=== PATIENT | female | born 1995 | race African-American/Black ===

== ENCOUNTER 2021-08-19 09:50 | Outpatient (REF) | payer OTHER, SELFPAY ==
[2021-08-19 10:29] LABS: MANUAL DIFF FLAG NO
[2021-08-19 10:32] LABS: Basophils Percent Auto 0.4 % (0-2); Eosinophils Absolute Auto 0.2 X10*3/uL (0.0-0.4); Eosinophils Percent Auto 3.6 % (0-4); Hematocrit 34.6 % (37.0-47.0); Lymphocytes Absolute Auto 1.8 X10*3/uL (1.2-4.9); Lymphocytes Percent Auto 40.9 % (20-40); Mean Corpuscular HGB Conc 31.8 g/dl (31.0-35.0); Mean Corpuscular Hemoglobin 25.6 pg (27.0-33.0); Mean Corpuscular Volume 80.7 fL (80.0-98.0); Mean Platelet Volume 10.2 fL (9.4-12.3); Monocytes Absolute Auto 0.4 X10*3/uL (0.1-1.2); Monocytes Percent Auto 8.7 % (2-11); Neutrophils Absolute Auto 2.1 x10*3/uL (2.0-8.3); Neutrophils Percent Auto 46.4 % (45-73); Platelet Count 318 X10*3/uL (160-400); Red Blood Count 4.29 X10*6/uL (4.20-5.50); Red Cell Distribution Width 12.3 % (11.0-16.0); White Blood Count 4.5 X10*3/uL (4.8-10.8)
[2021-08-19 10:57] LABS: Alanine Aminotransferase 7 U/L (0-31); Alkaline Phosphatase 89 U/L (39-117); Anion Gap 11 (12-20); Aspartate Amino Transferase 20 U/L (5-31); Bilirubin Total 0.4 mg/dL (0.0-1.0); Blood Urea Nitrogen 8 mg/dL (9-16); Calcium 8.8 mg/dL (8.4-10.2); Carbon Dioxide 25 mmol/L (22-29); Chloride 107 mmol/L (96-108); Cholesterol 157 mg/dL; Estimated Glomerular Filt Rate > 60; Glucose Fasting 82 mg/dL (60-99); HDL Cholesterol 36 mg/dL; LDL Cholesterol Calculated 104 mg/dl; Potassium 4.1 mmol/L (3.3-5.1); Sodium 139 mmol/L (135-145); Total Protein 7.7 g/dL (6.5-8.0); Triglycerides 85 mg/dL
[2021-08-19 11:20] LABS: Thyroid Stimulating Hormone 0.47 uIU/mL (0.32-4.0)
== END 2021-08-19 09:51 | disposition home or self-care (01) ==
LOC: HO.10HDL 09:50
PROVIDERS: Visit Provider Internal Medicine
DX: Z00.00 Encounter for general adult medical examination without abnormal findings (principal); Z13.31 Encounter for screening for depression; R53.83 Other fatigue; R63.5 Abnormal weight gain
CPT/HCPCS: 36415; 80053; 80061; 84443; 85025

== ENCOUNTER 2022-06-30 09:51 | Outpatient (REF) | payer OTHER, SELFPAY ==
[2022-06-30 10:29] LABS: MANUAL DIFF FLAG NO
[2022-06-30 10:37] LABS: Basophils Percent Auto 0.3 % (0-2); Eosinophils Absolute Auto 0.2 X10*3/uL (0.0-0.4); Eosinophils Percent Auto 5.1 % (0-4); Hematocrit 34.7 % (37.0-47.0); Hemoglobin 10.7 g/dl (12.0-16.0); Imm Gran Abs Auto 0.02 X10*3/uL (0.00-0.03); Imm Gran Pct Auto 0.5 % (0.0-0.4); Lymphocytes Absolute Auto 1.4 X10*3/uL (1.2-4.9); Mean Corpuscular HGB Conc 30.8 g/dl (31.0-35.0); Mean Corpuscular Hemoglobin 24.5 pg (27.0-33.0); Mean Corpuscular Volume 79.6 fL (80.0-98.0); Mean Platelet Volume 9.5 fL (9.4-12.3); Monocytes Absolute Auto 0.6 X10*3/uL (0.1-1.2); Monocytes Percent Auto 15.2 % (2-11); Neutrophils Absolute Auto 1.7 x10*3/uL (2.0-8.3); Neutrophils Percent Auto 43.9 % (45-73); Platelet Count 332 X10*3/uL (160-400); Red Blood Count 4.36 X10*6/uL (4.20-5.50); Red Cell Distribution Width 13.3 % (11.0-16.0); White Blood Count 3.9 X10*3/uL (4.8-10.8)
[2022-06-30 12:13] LABS: Alanine Aminotransferase 16 U/L (0-31); Albumin Level 4.2 g/dL (3.5-5.0); Alkaline Phosphatase 68 U/L (39-117); Anion Gap 13 (12-20); Aspartate Amino Transferase 20 U/L (5-31); Bilirubin Total 0.2 mg/dL (0.0-1.0); Blood Urea Nitrogen 6 mg/dL (9-16); Calcium 8.7 mg/dL (8.4-10.2); Carbon Dioxide 26 mmol/L (22-29); Chloride 104 mmol/L (96-108); Cholesterol 149 mg/dL; Estimated Glomerular Filt Rate > 60; Glucose Random 101 mg/dL (60-115); HDL Cholesterol 36 mg/dL; LDL Cholesterol Calculated 94 mg/dl; Potassium 3.7 mmol/L (3.3-5.1); Sodium 139 mmol/L (135-145); Thyroid Stimulating Hormone 0.18 uIU/mL (0.32-4.0); Total Protein 7.5 g/dL (6.5-8.0); Triglycerides 99 mg/dL
== END 2022-06-30 09:52 | disposition home or self-care (01) ==
LOC: HO.10HDL 09:51
PROVIDERS: Visit Provider Internal Medicine
DX: M70.61 Trochanteric bursitis, right hip (principal); M70.62 Trochanteric bursitis, left hip; R63.5 Abnormal weight gain; Z68.33 Body mass index [BMI] 33.0-33.9, adult
CPT/HCPCS: 36415; 80053; 80061; 84443; 85025

== ENCOUNTER 2022-10-06 11:27 | Outpatient (REF) | payer OTHER, SELFPAY ==
[2022-10-06 13:30] LABS: MANUAL DIFF FLAG NO
[2022-10-06 13:37] LABS: Basophils Percent Auto 0.5 % (0-2); Eosinophils Absolute Auto 0.3 X10*3/uL (0.0-0.4); Hematocrit 34.7 % (37.0-47.0); Hemoglobin 10.6 g/dl (12.0-16.0); Imm Gran Abs Auto 0.01 X10*3/uL (0.00-0.03); Imm Gran Pct Auto 0.2 % (0.0-0.4); Lymphocytes Absolute Auto 1.9 X10*3/uL (1.2-4.9); Lymphocytes Percent Auto 46.6 % (20-40); Mean Corpuscular HGB Conc 30.5 g/dl (31.0-35.0); Mean Corpuscular Hemoglobin 23.9 pg (27.0-33.0); Mean Corpuscular Volume 78.2 fL (80.0-98.0); Mean Platelet Volume 10.5 fL (9.4-12.3); Monocytes Absolute Auto 0.3 X10*3/uL (0.1-1.2); Neutrophils Absolute Auto 1.7 x10*3/uL (2.0-8.3); Neutrophils Percent Auto 39.7 % (45-73); Platelet Count 389 X10*3/uL (160-400); Red Blood Count 4.44 X10*6/uL (4.20-5.50); Red Cell Distribution Width 13.5 % (11.0-16.0); White Blood Count 4.2 X10*3/uL (4.8-10.8)
[2022-10-06 14:06] LABS: Ferritin 13 ng/mL (10-122); TSH reflex Free T4 0.43 uIU/mL (0.32-4.0)
[2022-10-08 07:23] LABS: Triiodothyronine T3 Free 3.5 pg/mL (2.3-4.2)
== END 2022-10-06 11:28 | disposition home or self-care (01) ==
LOC: HO.10HDL 11:27
PROVIDERS: Visit Provider Internal Medicine
DX: Z00.01 Encounter for general adult medical examination with abnormal findings (principal); D50.8 Other iron deficiency anemias; E05.90 Thyrotoxicosis, unspecified without thyrotoxic crisis or storm; G43.109 Migraine with aura, not intractable, without status migrainosus
CPT/HCPCS: 36415; 82728; 84443; 84481; 85025

== ENCOUNTER 2023-02-16 08:33 | Outpatient (REF) | payer OTHER, SELFPAY ==
[2023-02-16 09:53] LABS: MANUAL DIFF FLAG NO
[2023-02-16 10:05] LABS: Basophils Percent Auto 0.4 % (0-2); Eosinophils Absolute Auto 0.2 X10*3/uL (0.0-0.4); Eosinophils Percent Auto 3.6 % (0-4); Hematocrit 34.5 % (37.0-47.0); Hemoglobin 10.4 g/dl (12.0-16.0); Imm Gran Abs Auto 0.01 X10*3/uL (0.00-0.03); Imm Gran Pct Auto 0.2 % (0.0-0.4); Lymphocytes Absolute Auto 2.8 X10*3/uL (1.2-4.9); Lymphocytes Percent Auto 53.4 % (20-40); Mean Corpuscular HGB Conc 30.1 g/dl (31.0-35.0); Mean Corpuscular Hemoglobin 24.1 pg (27.0-33.0); Mean Platelet Volume 9.8 fL (9.4-12.3); Monocytes Absolute Auto 0.5 X10*3/uL (0.1-1.2); Monocytes Percent Auto 9.1 % (2-11); Neutrophils Absolute Auto 1.8 x10*3/uL (2.0-8.3); Neutrophils Percent Auto 33.3 % (45-73); Platelet Count 398 X10*3/uL (160-400); Red Blood Count 4.31 X10*6/uL (4.20-5.50); Red Cell Distribution Width 13.6 % (11.0-16.0); White Blood Count 5.3 X10*3/uL (4.8-10.8)
[2023-02-16 10:38] LABS: TSH reflex Free T4 0.45 uIU/mL (0.32-4.0)
[2023-02-17 06:58] LABS: Triiodothyronine T3 Free 3.3 pg/mL (2.3-4.2)
== END 2023-02-16 08:34 | disposition home or self-care (01) ==
LOC: HO.10HDL 08:33
PROVIDERS: Visit Provider Internal Medicine
DX: D50.8 Other iron deficiency anemias (principal); E05.90 Thyrotoxicosis, unspecified without thyrotoxic crisis or storm; Z68.33 Body mass index [BMI] 33.0-33.9, adult
CPT/HCPCS: 36415; 84443; 84481; 85025

== ENCOUNTER 2023-11-30 08:20 | Outpatient (REF) | payer OTHER, SELFPAY ==
[2023-11-30 10:36] LABS: MANUAL DIFF FLAG NO
[2023-11-30 10:49] LABS: Basophils Percent Auto 0.7 % (0-2); Eosinophils Absolute Auto 0.4 X10*3/uL (0.0-0.4); Eosinophils Percent Auto 8.5 % (0-4); Hematocrit 34.8 % (37.0-47.0); Hemoglobin 10.7 g/dl (12.0-16.0); Lymphocytes Absolute Auto 1.6 X10*3/uL (1.2-4.9); Lymphocytes Percent Auto 37.9 % (20-40); Mean Corpuscular HGB Conc 30.7 g/dl (31.0-35.0); Mean Corpuscular Hemoglobin 23.9 pg (27.0-33.0); Mean Corpuscular Volume 77.7 fL (80.0-98.0); Mean Platelet Volume 9.6 fL (9.4-12.3); Monocytes Absolute Auto 0.6 X10*3/uL (0.1-1.2); Monocytes Percent Auto 12.9 % (2-11); Neutrophils Absolute Auto 1.7 x10*3/uL (2.0-8.3); Platelet Count 373 X10*3/uL (160-400); Red Blood Count 4.48 X10*6/uL (4.20-5.50); Red Cell Distribution Width 13.9 % (11.0-16.0); White Blood Count 4.3 X10*3/uL (4.8-10.8)
[2023-11-30 11:31] LABS: Ferritin 20 ng/mL (10-122); Thyroid Stimulating Hormone 0.75 uIU/mL (0.32-4.0)
[2023-11-30 11:32] LABS: Vitamin B12 506 pg/mL (200-900)
[2023-11-30 12:19] LABS: CT PCR NOT DETECTED (Not Detect.); NG PCR NOT DETECTED (Not Detect.)
[2023-12-02 13:03] LABS: Hematocrit 33.8 % (35.0-45.0); Hemoglobin 10.5 g/dL (11.7-15.5); MCH 23.7 pg (27.0-33.0); MCV 76.3 fL (80.0-100.0); RBC 4.43 Million/uL (3.80-5.10)
== END 2023-11-30 08:21 | disposition home or self-care (01) ==
LOC: HO.10HDL 08:20
PROVIDERS: Visit Provider Internal Medicine
DX: Z00.01 Encounter for general adult medical examination with abnormal findings (principal); D50.8 Other iron deficiency anemias; I10 Essential (primary) hypertension; R63.5 Abnormal weight gain
CPT/HCPCS: 0353U; 82607; 82728; 83020; 84443; 85014; 85018; 85025; 85041

== ENCOUNTER → 2024-02-13 08:40 | Outpatient (BNV) | payer OTHER, SELFPAY | PROVIDERS: PCP Internal Medicine; Referring Provider Internal Medicine; Visit Provider Internal Medicine Medical Oncology | DX: D50.9 Iron deficiency anemia, unspecified (principal) | CPT/HCPCS: 99204 ==

== ENCOUNTER 2024-07-11 09:31 | Outpatient (REF) | payer OTHER, SELFPAY ==
--- OUTSIDE RECORDS SUMMARY | 2024-07-11 10:56 | XMS_ITS | Continuity of Care Document ---
Author Organization [facility] vices Address [address] [place] [address] Phone Care Team Providers Care Seasonal Greenery Bundler Name Role Phone Generic Provider, [facility] Unavailable Unavailabl e Allergies, Adverse Reactions, Alerts [...] 2 Dose IMMUNIZATION ADMIN, EACH ADD HPV [id number],nonaval HP V 3 Dose OFFICE/OUTPATIENT VISIT, EST PURE TONE HEARING TEST, AIR VISUAL ACUITY SCREEN IMMUNIZATION ADMIN FLU VACCINE, IIV3, Split, Preserv Free, 0.5mL, IM IMMUNIZATION ADMIN, EACH ADD HPV [id number],nonaval HP V 3 Dose PREV VISIT, EST, AGE 18-39 Resin-Based Composite-Two Surfaces, Post erior Treatment Plan [facility] IMMUN[facility]ATION ADMIN MENINGOCOCCAL VACCINE IM IMMUNIZATION ADMIN, EACH ADD H PAPILLOMA VACC 3 DOSE IM OFFICE/OUTPATIENT VISIT, EST IMMUNIZATION ADMIN HEP A VACCINE, ADULT IM IMMUNIZATION ADMIN, EACH ADD FLU VACCINE NO PRESERV 3 & > OFFICE/OUTPATIENT VISIT, EST OFFICE/OUTPATIENT VISIT, NEW Resin-Based Composite-Two Surfaces, Post erior Resin-Based Composite-Two Surfaces, Post erior Treatment Plan In Process [facility] Comprehensive Oral Evaluation-New Or Est ablished [...] Diagnoses Date Provider Providers Copied on Encounter [facility], [address], [place], [facility], [place] tel:[phone] [facility] Adult Medicine No Information 8 Generic Provider [facility]. [facility], [address] [place], [facility], [place] tel:[phone] [facility] Adolescent Health No Information 8 Mikayla Juliet. [address], [id number] [address] [place] [address], [address], [place]. tel:[phone] PREV VISIT, [facility], AGE 18-39 [facility], [address] [place], [facility], [place] tel:[phone] [facility] Adolescent Health Physical Exam (chief complaint) Encntr [...] adult 8 Mikaylaallegra Chung. [address], [id number] [address] [place] [address], [address], [place]. [phone] OFFICE/OUTPA TIENT VISIT, [facility], [address] [place], [place], [facility], [place] tel:[phone] [facility] Adolescent Health Immunizations (chief complaint) [facility] for [facility] 7 [facility] [address], [id number] [address] [place] [address], [address], [place]. tel:[phone] OFFICE/OUTPA TIENT VISIT, [facility], [address] [place], [address], [place] tel:[phone] [facility] Adolescent Health Follow Up (chief complaint) Dysmenorrhea , unspecifiedM enstrual migraine without status migrainosus, not intractable [address] [facility]. [address], [id number] [address] [place] [address], [address], [place]. tel: [phone] OFFICE/OUTPA TIENT VISIT, [facility], [address] [place], [address], [place] tel:[phone] [facility] Adolescent Health Immunizations (chief complaint) Encounter for immunization [address] [facility]. [address], [id number] [address] [place] [address], [address], [place]. tel: [phone] OFFICE/OUTPA TIENT VISIT, [facility], [address] [place], [address], [place] tel:[phone] [facility] Adolescent Health Follow Up (chief complaint) Vitamin D deficiency, unspecified Oct-2 7 Vishal Vitale. [address], [id number] [address] [place] [address], [address], [place]. tel: [phone] PREV VISIT, [facility], AGE 18-39 [facility], [address] [place] [address], [address], [place] tel:[phone] [facility] Adolescent Health Follow Up (chief complaint) Encntr for general adult medical exam w/o abnormal findingsBody mass index (BMI) 23.0-23.9, adultEncount er for exam of ears and hearing w/o abnormal findingsEnco unter for exam of eyes and vision w/o abnormal findingsMild depressionSc reening for depressionIn somnia, unspecified typeImmuniza tion dueVitamin D deficiency, unspecified Apr-0 7 Vishal Vitale. [address], [id number] [place], [address], [place]. tel: [phone] [facility], [address] [place], [address], [place] tel:[phone] [facility] Dental Encounter for dental exam and cleaning w/o abnormal findings 6 Devora Davis. [address], [id number] [address] [place] [address], [id number], [place]. tel:[phone] OFFICE/OUTPA TIENT VISIT, [facility], [address] [place], [address], [place] tel:[phone] [facility] Adolescent Health f/u (chief complaint) Immunization due 5 Vishal Vitale. [address], [id number] [address] [place] [address], [address], [place]. tel:[phone] OFFICE/OUTPA TIENT VISIT, [facility], [address], [place], [address], [place] tel:[phone] [facility] Adolescent Health Sick visit (chief complaint) Lower abdominal pain, unspecifiedI mmunization dueVitamin D deficiency, unspecified 5 Vishal Vitale. [address], [id number] [address] [place] [address], [address], [place]. tel:[phone] OFFICE/OUTPA TIENT VISIT, [facility], [address], [place], [address], [place] tel:[phone] [facility] Adolescent Health cramps (chief complaint)New patient (chief complaint) Dysmenorrhea Leg pain 5 Vishal Vitale. [address], [id number] [address] [place] [address], [address], [place]. tel:[phone] [facility], [address] [place], [address], [place] tel:[phone] [facility] Dental Dental examination 5 Devora Davis. [address], [id number] [place], [id number], [place]. tel:[phone] Referring Provider: Susan Lozoya, [address] [id number] [facility], [place], [address] . tel:[phone] [facility], [place], [address], [place] tel:[phone] [facility] Dental Dental examination 5 No Information [facility], [place], [address], [place] tel:[phone] [facility] Dental Dental examination 5 Devora Davis. [address], [id number] [address] [place] [address], [id number], [place]. tel:[phone] [facility], [address] [place] [address], [address], [place] tel:[phone] [facility] Dental Dental examination 5 Rodir Tan. [address], [id number] [address] [place] [address], [id number], [place]. tel:[phone] [facility], [address] [place] [address], [address], [place] tel:[phone] [facility] Dental Dental examination 4 Devora Kirk. [address], [id number] [address] [place] [address], [id number], [place]. tel:[phone] [facility], [address] [place] [address], [address], [place] tel:[phone] Historic Immunization Location No Information 1 No Information [facility], [address] [place] [address], [address], [place] tel:[phone] Conversion ROUTINE INFANT OR CHILD HEALTH CHECKHEADACH E, UNSPECIFIED 0 9 No Information PREV EST 12-17 [facility], [address] [place] [address], [address], [place] tel:[phone] [facility] Pediatrics No Information 9 No Information [facility], [address] [place] [address], [address], [place] tel:[phone] Conversion UNSPECIFIED VIRAL INFECTION 9 No Information EST [facility], [address] [place], [address], tel:[phone] [facility] Pediatrics No Information 9 No Information [facility], [address] [place], [address], [place] tel:[phone] Conversion ACUTE GASTRITIS (WITHOUT HEMORRHAGE) 8 No Information EST [facility], [address] [place], [address], [place] tel:[phone] [facility] Pediatrics No Information 8 No Information Family [...] preservative free, 3 years and older Afluria ???[id number] administered Source: New Immuniza tion Record HEP [...] Covered green party ID James zuleta(s) Vivek [id number] CHN Husky D [id number] CHN Husky D [id number] CHN Husky A [id number] CHN Husky A [id number] CHN Husky A [id number] Social History Type Description Quantity Date Captured [...] and counseling completed Referral Ordered: Referrals: Location: [facility] Optometry Appointment date/timeframe: 04/19/2018 ordered Patient Education [...] live with someone who has been in custodial, has lived in a fdc, injects IV drugs or has HIV? noHas [...] No dysuria. No vaginal D/C. Came from [facility] in 2004. No hospitalizations. No chronic meds. NKDA.Has graduated from [employer] (medical school on line). 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 Denies smoking and drug abuse. Sleeps 8 [...] hospitalizations. No chronic meds. NKDA.Has graduated from [employer] (medical school on line). 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 Denies smoking and drug abuse. Reports good mood, no SI.Sleeps 9 hours/night. Eats breakfast daily. f/u Here for F/U.Rep orts that abdominal pain and vomiting have resolved. Regular BMs. No dysuria. No vaginal D/C. Regular periods with dysmenorrhea SXs. LMP-04/29/15. No sex yet. Has started the vitamin D treatment.Came from [facility] in 2004. No hospitalizations. No chronic meds. NKDA.Attends [employer] ([employer] school on line). 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 Denies smoking and drug abuse. Reports good mood, no SI.Sleeps 9 hours/night. Eats breakfast daily. Sick visit Occasional abdom inal pain and vomiting for 3 days. Last BM 3 days ago. Feels better today, last vomiting yesterday. No dysuria. No vaginal D/C. Regular periods with dysmenorrhea SXs. LMP-04/29/15. No sex yet. Has not taken the vitamin D treatment yet.Came from [facility] in 2004. No hospitalizations. No chronic meds. NKDA.Attends [employer] school on line). 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 Denies smoking and drug abuse. Reports good mood, no SI.Sleeps 9 hours/night. Eats breakfast daily. cramps New patient New patient. Cam e from [facility] in 2004. No hospitalizations. No chronic [...] without status migrainosus, not intractable -referred to [facility] Optometry Relat ed to Myopia of both [...] sooner prn Related to Encounter for immunization Prescribed activity/ exercise education Related to Body mass index (BMI) 23.0-23.9, adult Dietary management e ducation, guidance, and counseling Related to Body mass index (BMI) 23.0-23.9, adult Dietary management e ducation, guidance, and counseling Related to Body mass index (BMI) 23.0-23.9, adult Exercise promotion: strength tra ining Related to Body mass index (BMI) 23.0-23.9, adult Assessments Type Assessment Date No Information Patient Care Teams Name Effective Dates (start - stop) Status Members No Information
== END 2024-07-11 09:32 | disposition home or self-care (01) ==
LOC: HO.LAB 09:31
PROVIDERS: PCP Internal Medicine; Visit Provider Advanced Practice Midwife
DX: Z01.411 Encounter for gynecological examination (general) (routine) with abnormal findings (principal); N92.0 Excessive and frequent menstruation with regular cycle
CPT/HCPCS: 99212; 99385; 99459

== ENCOUNTER 2024-07-11 09:31 | Outpatient (AMB) | payer OTHER, SELFPAY ==
[2024-07-11 09:50] VITALS: BP 92/60; BMI 36.1
--- NOTE | 2024-07-11 09:50 | A.OFFVIS_ITS ---
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 She reports increased vaginal discharge with odor. Regular monthly menses regular times 4-5 days heavy for 2 to 3 days. Currently is sexually active. She denies vaginal itching and irritation. STI screening offered; she accepts. She tries to eat healthy, admits she is lactose intolerant and stays active with exercise. History of anemia, has not filled her iron prescription. Denies family history of breast, ovarian or colon cancer. Last pap smear no record and, patient reports was negative. Previous lab TSH done 11/30/2023 was 0.75, H/H on 02/13/2024 was 10.7/34.3. 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 Menorrhagia Migraine with aura Social History (Updated 07/11/24 @ 10:02 by Mariaelena Reyes [facility]) Household Members: Family Alcohol intake: never Patient Tobacco Use Status: Never used Tobacco service: No Current occupational status: employed Female Reproductive History Menstrual Age of Menarche: 12 Duration of menses: 3-5 days Date of last menstrual period: 06/14/24 control method: none Total pregnancies: 0 Review of Systems Const All systems reviewed & are unremarkable except as noted in HPI and below Reports as per HPI Eyes Reports no additional complaints ENT Reports no additional complaints Card Reports no additional complaints Resp Reports no additional complaints GI Reports as per HPI and Reports no additional complaints Reports as per HPI Musc Reports no additional complaints Skin/Breast Reports as per HPI Neuro Reports no additional complaints Psych Reports no additional complaints Endo Reports no additional complaints Bradly/Lymph Reports no additional complaints Aller/Immun Reports no additional complaints Physical Exam Vital Signs: Last Vital Signs BP 92/60 07/11/24 09:50 BMI result Body Mass Index 36.1 Const General: cooperative, healthy appearing, no acute distress, well developed and alert Orientation/consciousness: patient oriented x3 HEENT Head: Yes normal to inspection Eyes General: appearance normal, both eyes and all related structures Neck Neck: Yes normal visual inspection Thyroid: Thyroid normal Chest Chest palpation & inspection: normal inspection of the chest and other (no puckering, dimpling, peau de orange, retraction, discharge, masses) Breast/axilla inspection: normal inspection of the breasts Breast/axilla palpation: normal palpation of the breasts Resp Effort & Inspection: normal respiratory effort GI Inspection: Yes normal to inspection Palpation (GI): Soft to palpation Rectal Exam - Female: deferred Other: FGM noted General: Yes bladder normal to palpation External Female Exam: normal external appearance and normal appearance of the urethra Speculum Exam - Vagina: normal appearance of the vagina, normal palpation and normal vaginal discharge Speculum Exam - Cervix: normal appearance of the cervix and normal palpation Bimanual exam- vagina & uterus: normal bimanual exam, normal palpation, uterine size normal, bladder normal to palpation, normal palpation and non-tender Bimanual Exam- Adnexa, other: no masses Skin General skin exam: no rashes or lesions noted Rashes: no rashes Neuro General: patient oriented x3 Cognition (Neuro): normal cognition Extrem General: Yes normal to inspection Psych Attitude: cooperative Thought process: Normal thought process present Assessment & Plan Assessment & Plan (1) Encounter for well woman exam with routine gynecological exam: Code(s): Z01.419 - Encounter for gynecological examination (general) (routine) without abnormal findings Category: Medical (2) Menorrhagia: Code(s): N92.0 - Excessive and frequent menstruation with regular cycle Category: Medical Qualifiers: Menorrhagia type: with regular cycle Qualified Code(s): N92.0 - Excessive and frequent menstruation with regular cycle Plan Discussed: Current recommendations for pap smears per ASCCP guidelines. Pap smear obtained. BV GC and chlamydia panel obtained. Advised to check with her insurance policy to see if a referral to [facility] is covered. Breast awareness and periodic breast exams. Maintain a healthy lifestyle including a well balanced diet and routine exercise. Start vitamins for the benefit of folic acid. Pelvic ultrasound due to menorrhagia. Follow up in person for test results. Patient verbalizes understanding and agrees to the plan of care. She was given opportunity to ask questions and all questions were answered to the best of my ability. 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 This note is constructed using voice recognition software. While every effort has been made to ensure accuracy, rn access errors may have been included. Orders: Orders Bacterial Vaginosis Panel Today N92.0 - Excessive and frequent menstruation with regular cycle CT NG by PCR Today N92.0 - Excessive and frequent menstruation with regular cycle Pap Smear Today N92.0 - Excessive and frequent menstruation with regular cycle, Z01.419 - Encounter for gynecological examination (general) (routine) without abnormal findings US pelvic and transvaginal Today N92.0 - Excessive and frequent menstruation with regular cycle Medications: New PNV,calcium [id number] acid 27 mg iron- 1 mg ( Vitamins Plus Low Iron) 1 tab PO DAILY 90 tabs 4RF Coding Level of Care Code New Pt Prev Care 18-39yr([id number] Diagnoses Encounter for well woman exam with routine gynecological exam Z01.419 Menorrhagia with regular cycle N92.0 Menorrhagia type: with regular cycle
== END 2024-07-11 10:32 | disposition home or self-care (01) ==
LOC: HO.HWS 09:31
PROVIDERS: PCP Internal Medicine; Visit Provider Advanced Practice Midwife
DX: Z01.419 Encounter for gynecological examination (general) (routine) without abnormal findings (principal); N92.0 Excessive and frequent menstruation with regular cycle; N89.8 Other specified noninflammatory disorders of vagina
CPT/HCPCS: 99214; 99385; 99459

== ENCOUNTER 2024-07-11 10:26 | Outpatient (REF) | payer OTHER, SELFPAY ==
--- OUTSIDE RECORDS SUMMARY | 2024-07-11 10:56 | XMS_ITS | Continuity of Care Document ---
Author Organization [facility] vices Address [address] [place] [address] Phone Care Team Providers Care Securities Consultant Name Role Phone Generic Provider, [facility] Unavailable Unavailabl e Allergies, Adverse Reactions, Alerts Substance Reaction Status Criticality pineapple itchingitching Active No Informatio n perfume Active No Information Medications Medication Instructions Dosage Effective Dates (start - stop) Status Comments Diflucan 150 mg tablet take 1 tablet by oral route once - Active naproxen 500 mg tablet take 1 tablet by oral route 2 times every day with food 500 MG - Active Vitamin D2 50,000 unit capsule take 1 capsule by oral route (with dinner) every week for 8 weeks - No Longer Active Procedures Procedure Date PURE TONE HEARING TEST, AIR VISUAL ACUITY SCREEN URINALYSIS NONAUTO W/O SCOPE PREV VISIT, EST, AGE 18-39 IMMUNIZATION ADMIN Meningococcal, SG B,Recombit Protn&vesic le, 2 Dose IMMUNIZATION ADMIN, EACH ADD Influenza Vaccine,Quad IIV4,Split, PresF ree, 0.5mL, IM OFFICE/OUTPATIENT VISIT, EST OFFICE/OUTPATIENT VISIT, EST OFFICE/OUTPATIENT VISIT, EST IMMUNIZATION ADMIN Meningococcal, SG B,Recombit Protn&vesic le, 2 Dose IMMUNIZATION ADMIN, EACH ADD HPV [id number],nonaval HP V 3 Dose OFFICE/OUTPATIENT VISIT, EST PURE TONE HEARING TEST, AIR VISUAL ACUITY SCREEN IMMUNIZATION ADMIN FLU VACCINE, IIV3, Split, Preserv Free, 0.5mL, IM IMMUNIZATION ADMIN, EACH ADD HPV [id number],nonaval HP V 3 Dose PREV VISIT, EST, AGE 18-39 Resin-Based Composite-Two Surfaces, Post erior Treatment Plan In Process [facility] I[facility]UN[facility]ATION ADMIN MENINGOCOCCAL VACCINE IM IMMUNIZATION ADMIN, EACH ADD H PAPILLOMA VACC 3 DOSE IM OFFICE/OUTPATIENT VISIT, EST IMMUNIZATION ADMIN HEP A VACCINE, ADULT IM IMMUNIZATION ADMIN, EACH ADD FLU VACCINE NO PRESERV 3 & > OFFICE/OUTPATIENT VISIT, EST OFFICE/OUTPATIENT VISIT, NEW Resin-Based Composite-Two Surfaces, Post erior Resin-Based Composite-Two Surfaces, Post erior Treatment Plan In Process [facility] Comprehensive Oral Evaluation-New Or Est ablished P Treatment Plan Initiated Prophylaxis-Child topical application of fluoride 015 Bitewings-Four Films Intraoral-Periapical First Film 015 Intraoral-Periapical Each Additional Jose m Intraoral-Periapical First Film 014 Limited Oral Evaluation-Problem Focused Treatment Plan Not Started INTERMED EYE EXAM, ESTAB PURE TONE HEARING TEST, AIR PREV EST 12-17 TDAP VACC 7YR> IM IMMUNIZATION ADMIN EACH IMMUNIZATION ADMINISTRAT CHICKEN POX (VARICELLA) URINALYSIS, NON-AUTOMATE HEMOGLOBIN COUNT, COLORI EST EXPANDED EST EXPANDED Advance Directives Directive Yes / No Effective Date File Name No Information Encounters Encounter Description Practice Location Reason(s) For Visit Diagnoses Date Provider Providers Copied on Encounter [facility], [address], [place], [facility], [place] tel:[phone] [facility] Adult Medicine No Information 8 Generic Provider [facility]. [facility], [address] [place], [facility], [place] tel:[phone] [facility] Adolescent Health No Information 8 Mikayla Juliet. [address], [id number] [address] [place] [address], [address], [place]. tel:[phone] PREV VISIT, [facility], AGE 18-39 [facility], [address] [place], [place], [facility], [place] tel:[phone] [facility] Adolescent Health Physical Exam (chief complaint) Encntr for general adult medical exam w/o abnormal findingsEnco unter for exam of ears and hearing w/o abnormal findingsEnco unter for screening, unspecifiedA cute vaginitisEnc ounter for screening for respiratory TBScreening for depressionMe nstrual migraine without status migrainosus, not intractableE ncounter for examination of eyes and vision NOSMyopia of both eyesBody mass index (BMI) 25.0-25.9, adult 8 Mikaylaallegra Chung. [address], [id number] [address] [place] [address], [address], [place]. [phone] OFFICE/OUTPA TIENT VISIT, [facility], [address] [place], [facility], [place] tel:[phone] [facility] Adolescent Health Immunizations (chief complaint) [facility] for [facility] [address], [id number] [address] [place] [address], [address], [place]. tel:[phone] OFFICE/OUTPA TIENT VISIT, [facility], [address] [place], [address], [place] tel:[phone] [facility] Adolescent Health Follow Up (chief complaint) Dysmenorrhea , unspecifiedM enstrual migraine without status migrainosus, not intractable 7 [facility]. [address], [id number] [address] [place] [address], [address], [place]. tel: [phone] OFFICE/OUTPA TIENT VISIT, [facility], [address] [place], [address], [place] tel:[phone] [facility] Adolescent Health Immunizations (chief complaint) Encounter for immunization 7 [facility]. [address], [id number] [address] [place] [address], [address], [place]. tel: [phone] OFFICE/OUTPA TIENT VISIT, [facility], [address] [place], [address], [place] tel:[phone] [facility] Adolescent Health Follow Up (chief complaint) Vitamin D deficiency, unspecified Oct-2 7 Vishal Vitale. [address], [id number] [address] [place] [address], [address], [place]. tel: [phone] PREV VISIT, [facility], AGE 18-39 [facility], [address] [place] [address], [address], [place] tel:[phone] [facility] Adolescent Health Follow Up (chief complaint) Encntr for general adult medical exam w/o abnormal findingsBody mass index (BMI) 23.0-23.9, adultEncount er for exam of ears and hearing w/o abnormal findingsEnco unter for exam of eyes and vision w/o abnormal findingsMild depressionSc reening for depressionIn somnia, unspecified typeImmuniza tion dueVitamin D deficiency, unspecified Apr-0 7 Vishal Vitale. [address], [id number] [address], [place], [address], [place]. tel: [phone] [facility], [address] [place], [address], [place] tel:[phone] [facility] Dental Encounter for dental exam and cleaning w/o abnormal findings 6 Devora Davis. [address], [id number] [address] [place] [address], [id number], [place]. tel:[phone] OFFICE/OUTPA TIENT VISIT, [facility], [address] [place], [address], [place] tel:[phone] [facility] Adolescent Health f/u (chief complaint) Immunization due 5 Vishal Vitale. [address], [id number] [address] [place] [address], [address], [place]. tel:[phone] OFFICE/OUTPA TIENT VISIT, [facility], [address], [place], [address], [place] tel:[phone] [facility] Adolescent Health Sick visit (chief complaint) Lower abdominal pain, unspecifiedI mmunization dueVitamin D deficiency, unspecified 5 Vishal Vitale. [address], [id number] [address] [place] [address], [address], [place]. tel:[phone] OFFICE/OUTPA TIENT VISIT, [facility], [address], [place], [address], [place] tel:[phone] [facility] Adolescent Health cramps (chief complaint)New patient (chief complaint) Dysmenorrhea Leg pain 5 Vishal Vitale. [address], [id number] [address] [place] [address], [address], [place]. tel:[phone] [facility], [address] [place], [address], [place] tel:[phone] [facility] Dental Dental examination 5 Devora Davis. [address], [id number] [address], [id number], [place]. tel:[phone] Referring Provider: Susan Lozoya, [address] [id number] [facility], [place], [address] . tel:[phone] [facility], [place], [address], [place] tel:[phone] [facility] Dental Dental examination 5 No Information [facility], [place], [address], [place] tel:[phone] [facility] Dental Dental examination 5 Devora Davis. [address], [id number] [address] [place] [address], [id number], [place]. tel:[phone] [facility], [address] [place] [address], [address], [place] tel:[phone] [facility] Dental Dental examination 5 Rodri Tan. [address], [id number] [address] [place] [address], [id number], [place]. tel:[phone] [facility], [address] [place] [address], [address], [place] tel:[phone] [facility] Dental Dental examination 4 Devora Kirk. [address], [id number] [address] [place] [address], [id number], [place]. tel:[phone] [facility], [address] [place] [address], [address], [place] tel:[phone] Historic Immunization Location No Information 1 No Information [facility], [address] [place] [address], [address], [place] tel:[phone] Conversion ROUTINE INFANT OR CHILD HEALTH CHECKHEADACH E, UNSPECIFIED 0 9 No Information PREV EST 12-17 [facility], [address] [place] [address], [address], [place] tel:[phone] [facility] Pediatrics No Information 9 No Information [facility], [address] [place] [address], [address], [place] tel:[phone] Conversion UNSPECIFIED VIRAL INFECTION 9 No Information EST [facility], [address] [place], [address], tel:[phone] [facility] Pediatrics No Information 9 No Information [facility], [address] [place], [address], [place] tel:[phone] Conversion ACUTE GASTRITIS (WITHOUT HEMORRHAGE) 8 No Information EST [facility], [address] [place], [address], [place] tel:[phone] [facility] Pediatrics No Information 8 No Information Family History Family Member Type Diagnosis Age At Onset Sister Problem (finding) migraine Father Problem (finding) hypertension Immunizations Vaccine Date Status Comments Flulaval or Fluarix 2016 administere d Note: vis given ; Source: New Immunization Record meningococcal B, OMV, 2 dose schedule administered Note: vis given ; So urce: New Immunization Record HPV (9-valent) administered Note: vis giv en ; Source: New Immunization Record meningococcal B, OMV, 2 dose schedule administered Note: vis given ; So urce: New Immunization Record HPV (9-valent) administered Note: vis giv en ; Source: New Immunization Record Influenza, seasonal, injectable, preservative free, 3 yrs or older (36 mos+) administered Note: vis given ; Source: New Immunization Record HPV administered Source: New Imm unization Record MCV4 (11-55 yrs) administered Source: New Immunization Record Hep A (adult) administered Source: New Im munization Record Influenza, injectable, split virus, preservative free, 3 years and older Afluria ???[id number] administered Source: New Immuniza tion Record HEP A VACC, PED/ADOL, 2 DOSE administered Source: New Immunization Record MENINGOCOCCAL VACCINE, IM administered So urce: New Immunization Record IMMUNIZATION ADMIN EACH administered Sour ce: New Immunization Record IMMUNIZATION ADMINISTRAT administered Faith rce: New Immunization Record CHICKEN POX (VARICELLA) administered Sour ce: New Immunization Record TDAP VACC 7YR> IM administered Source: Ne w Immunization Record Varicella administered Source: Other P rovider IMADM ANY ROUTE 1ST VAC/TOX administered Source: New Immunization Record Payers Payer name Insurance type Covered green party ID James zuleta(s) [id number] [employer] D [id number] [employer] D [id number] [employer] A [id number] [employer] A [id number] [employer] A [id number] Social History Type Description Quantity Date Captured Comments Alcohol Use Details Unknown Caffeine Use Details Unknown Tobacco Use Status No Information Smoking Status No Information Sex Female Chief Complaint And Reason For Visit No Information Reason For Referral Reason For Referral No Information Plan Of Treatment Date Type Action Status Goal Dietary manageme nt education, guidance, and counseling completed Goal Dietary manageme nt education, guidance, and counseling completed Goal Dietary manageme nt education, guidance, and counseling completed Referral Ordered: Referrals: Location: [facility] Optometry Appointment date/timeframe: 04/19/2018 ordered Patient Education Headache: After Your Vi sit completed History Of Present Illness Encounter Date Complaint History Of Prese nt Illness Physical Exam Jerad is a 22 year old female. She reports today for her annual wellness visit. She reports a past medical history of migraines with menstrual periods (uses Ibuprofen with good relief, but would like to try a different medicine) and Vitamin D deficiency.No known drug allergies, but itches with exposure to pineapple and perfume.She takes no current daily meds. She reports she has been well since her last check up with no recent illnesses or hospitalizations. Denies SI or HI. Concern for today's visit includes 2 day history of vaginal itching and swelling with mild dysuria. She denies fever, abdominal pain, or vaginal discharge. She denies being sexually active. She declines STI screening today.TB SCREEN: TB Risk AssessmentWas patient born outside [place]? yes - [place])Has patient traveled outside [place]? noHas patient been exposed to anyone with TB? noDoes patient have close contact with someone with + TST or IGRA? noDoes patient live with someone who has been in penitentiary, has lived in a intermediate, injects IV drugs or has HIV? noHas patient eaten unpasteurized cheese from [place] or [place]? No Immunizations patient here tod ay for Men B and flu vaccine. No known drug allergies, no current daily meds. No history of asthma or seizure. No recent fever or illness. No previous reaction to immunizations. No concerns today. Follow Up Patient presents with history of headache that begins 1-2 days before menstrual period and painful menstrual cramps. Takes Aspirin with no relief. LMP last 03/29/17. Immunizations patient here to day for third HPV vaccine. No known allergies, current daily meds include Vit D and Melatonin. No history of asthma or seizure. No recent fever or illness. No previous reaction to immhnizations. No concerns today. Follow Up Here for F/U.Hx of low vitamin D. Takes vitamin D supplement. Sleeps better with melatonin. Mood better, no SI.Hx of lactose intolerance. Regular periods. LMP-10/08/16. No sex yet. No dysuria. No vaginal D/C. Came from [facility] in 2004. No hospitalizations. No chronic meds. NKDA.Has graduated from [employer] (medical school on line). 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 Denies smoking and drug abuse. Sleeps 8 hours/night. Eats breakfast daily. Follow Up Here for Nickie dawn. No vaginal D/C. Regular periods with dysmenorrhea SXs. LMP-09/27/16. No sex yet. Has completed vitamin D treatment but has not taken supplement. Problems falling asleep. Hx of lactose intolerance. Needs a flu shot for her work.Came from [place] in 2004. No hospitalizations. No chronic meds. NKDA.Has graduated from [employer] (medical school on line). 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 Denies smoking and drug abuse. Reports good mood, no SI.Sleeps 9 hours/night. Eats breakfast daily. f/u Here for F/U.Rep orts that abdominal pain and vomiting have resolved. Regular BMs. No dysuria. No vaginal D/C. Regular periods with dysmenorrhea SXs. LMP-04/29/15. No sex yet. Has started the vitamin D treatment.Came from [facility] in 2004. No hospitalizations. No chronic meds. NKDA.Attends [employer] ([employer] on line). 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 Denies smoking and drug abuse. Reports good mood, no SI.Sleeps 9 hours/night. Eats breakfast daily. Sick visit Occasional abdom inal pain and vomiting for 3 days. Last BM 3 days ago. Feels better today, last vomiting yesterday. No dysuria. No vaginal D/C. Regular periods with dysmenorrhea SXs. LMP-04/29/15. No sex yet. Has not taken the vitamin D treatment yet.Came from [facility] in 2004. No hospitalizations. No chronic meds. NKDA.Attends [employer] school on line). 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 Denies smoking and drug abuse. Reports good mood, no SI.Sleeps 9 hours/night. Eats breakfast daily. cramps New patient New patient. Cam e from [facility] in 2004. No hospitalizations. No chronic meds. NKDA.Attends 12th grade. Denies smoking and drug abuse. Regular periods with dysmenorrhea SXs. LMP-10/12/14. No sex yet. Reports good mood, no SI.Sleeps 9 hours/night. Eats breakfast daily.Occasional R leg pain, last episode 2 weeks ago Functional Status Date Functional Assessmen t No Information Instructions Date Instruction Additional Infor roly -prescribed Naproxen 500mg twice per day to be taken with meals-be sure to rest, get 8-9 hours of sleep-avoid stress and get regular exercise-some foods such as chocolate, alcohol, some cheeses, MSG, and artificial sweeteners may cause headache-may consider decreasing screen time (phone, TV, computer) if aggravating-return to clinic in 2 weeks to follow up or [facility] if alarm signs occur (vomiting, headache that wakens patient, worst headache of life ) Related to Menstrual migraine without status migrainosus, not intractable -referred to [facility] Optometry Relat ed to Myopia of both eyes -vaginitis panel col lected-prescribed Diflucan to be taken po x1, advised to not drink alcohol while taking this med-Avoid scented products-Wear white cotton underwear-Increase fluids-Cleanse vaginal area with warm water and soap--inside vagina is self cleaning--nothing inside vagina, no douching Related to Acute vaginitis Jerad is a well de veloped, well nourished 22 year old -Up to date with all required immunizations -Anticipatory guidance-Verbalizes understanding-F/u at soonest convenience for PAP Related to Encntr for general adult medical exam w/o abnormal findings Age appropriate safe ty discussed (15-21 years) Oral Health Discussed (15-21 yea rs) Giving encouragement to exercise Related to Body mass index (BMI) 25.0-25.9, adult Dietary management e ducation, guidance, and counseling Related to Body mass index (BMI) 25.0-25.9, adult Age appropriate anti cipatory guidance discussed (15-21 years) Age appropriate diet discussed (15-21 years) - prescribed Naproze n 500mg twice daily as needed for menstrual cramps- may use heat for comfort- discussed option of OCP to control menstrual cramps, patient declines at this time- CBC ordered to see if bleeding is causing anemia Related to Dysmenorrhea, unspecified - prescribed Naproxe n 500mg twice per day as needed, to be taken with meals- be sure to rest, get 8-9 hours of sleep- may consider decreasing screentime (phone, TV, computer) if aggravating- f/u if no headache relief with Naproxen during nexy menstrual period Related to Menstrual migraine without status migrainosus, not intractable - HPV and Men B VIS given- f/u in 1 month for second Men B, sooner prn Related to Encounter for immunization Exercise promotion: strength tra ining Related to Body mass index (BMI) 23.0-23.9, adult Dietary management e ducation, guidance, and counseling Related to Body mass index (BMI) 23.0-23.9, adult Prescribed activity/ exercise education Related to Body mass index (BMI) 23.0-23.9, adult Dietary management e ducation, guidance, and counseling Related to Body mass index (BMI) 23.0-23.9, adult Assessments Type Assessment Date No Information Patient Care Teams Name Effective Dates (start - stop) Status Members No Information
[2024-07-12 03:09] LABS: CT PCR NOT DETECTED (Not Detect.); NG PCR NOT DETECTED (Not Detect.)
[2024-07-12 11:52] LABS: Bacterial Vaginosis PCR NEGATIVE (Negative); Candida Group PCR NOT DETECTED (Not Detect); Candida glab krusei PCR NOT DETECTED (Not Detect); Trichomonas vaginalis PCR NOT DETECTED (Not Detect)
== END 2024-07-11 10:27 | disposition home or self-care (01) ==
LOC: HO.LNP 10:26
PROVIDERS: Visit Provider Advanced Practice Midwife
DX: Z01.419 Encounter for gynecological examination (general) (routine) without abnormal findings (principal); N92.0 Excessive and frequent menstruation with regular cycle
CPT/HCPCS: 81515; 87491; 87591; 88175

== ENCOUNTER 2024-07-16 15:51 | Outpatient (REF) | payer OTHER, SELFPAY ==
--- NOTE | ~2024-07-16 | US_ITS ---
CLINICAL HISTORY: N92.0 - Excessive and frequent menstruation with regular cycle US pelvis transabdominal and transvaginal Comparison: None Findings: Transabdominal scanning performed for overall anatomy. Transvaginal scanning performed for additional detail. Uterus is 9.4 cm length. Normal myometrium. Endometrium 6.0 mm thickness. Right ovary 2.4 x 1.2 x 1.7 cm. Left ovary 1.4 x 1.6 x 1.5 cm. Normal color Doppler of both ovaries. No free fluid. IMPRESSION: 1. Normal pelvic ultrasound This document has been electronically signed by: Gilberto Morgan MD on 07/18/2024 14:52:03
--- OUTSIDE RECORDS SUMMARY | 2024-07-16 19:42 | XMS_ITS | Continuity of Care Document ---
[facility] Organization [facility] Address [address] [place] [address] Phone Care Team Providers Care Mass Spectroscopist Name Role Phone Generic Provider, [facility] Unavailable Unavailabl e Allergies, Adverse Reactions, Alerts Substance Reaction Status Criticality pineapple itchingitching Active No Informatio n perfume Active No Information Medications Medication Instructions Dosage Effective Dates (start - stop) Status Comments naproxen 500 mg tablet take 1 tablet by oral route 2 times every day with food 500 MG - Active Diflucan 150 mg tablet take 1 tablet by oral route once - Active Vitamin D2 50,000 unit capsule [...] 2 Dose IMMUNIZATION ADMIN, EACH ADD HPV [id number],nonaval HP V 3 Dose OFFICE/OUTPATIENT VISIT, EST PURE TONE HEARING TEST, AIR VISUAL ACUITY SCREEN IMMUNIZATION ADMIN FLU VACCINE, IIV3, Split, Preserv Free, 0.5mL, IM IMMUNIZATION ADMIN, EACH ADD HPV [id number],nonaval HP V 3 Dose PREV VISIT, EST, AGE 18-39 Resin-Based Composite-Two Surfaces, Post erior Treatment Plan In Process [facility] IMMUNIZATION ADMIN MENINGOCOCCAL VACCINE IM IMMUNIZATION ADMIN, EACH ADD H PAPILLOMA VACC 3 DOSE IM OFFICE/OUTPATIENT VISIT, EST IMMUNIZATION ADMIN HEP A VACCINE, ADULT IM IMMUNIZATION ADMIN, EACH ADD FLU VACCINE NO PRESERV 3 & > OFFICE/OUTPATIENT VISIT, EST OFFICE/OUTPATIENT VISIT, NEW Resin-Based Composite-Two Surfaces, Post erior Resin-Based Composite-Two Surfaces, Post erior Treatment Plan In Process [facility] Comprehensive Oral Evaluation-New Or Est ablished P [...] Diagnoses Date Provider Providers Copied on Encounter [facility], [address], [place], [facility], [place] tel:[phone] [facility] Adult Medicine No Information 8 Generic Provider [facility]. [facility], [address] [place], [facility], [place] tel:[phone] [facility] Adolescent Health No Information 8 Mikayla Juliet. [address], [id number] [address] [place] [address], [address], [place]. tel:[phone] PREV VISIT, [facility], AGE 18-39 [facility], [address] [place], [place], [facility], [place] tel:[phone] [facility] Adolescent Health Physical Exam (chief complaint) Encntr [...] adult 8 Mikaylaallegra Chung. [address], [id number] [address] [place] [address], [address], [place]. [phone] OFFICE/OUTPA TIENT VISIT, [facility], [address] [place], [place], [facility], [place] tel:[phone] [facility] Adolescent Health Immunizations (chief complaint) Encounter for immunization 7 [facility] [address], [id number] [address] [place] [address], [address], [place]. tel:[phone] OFFICE/OUTPA TIENT VISIT, [facility], [address] [place], [address], [place] tel:[phone] [facility] Adolescent Health Follow Up (chief complaint) Dysmenorrhea , unspecifiedM enstrual migraine without status migrainosus, not intractable 7 [facility]. [address], [id number] [address] [place] [address], [address], [place]. tel: [phone] OFFICE/OUTPA TIENT VISIT, [facility], [address] [place], [address], [place] tel:[phone] [facility] Adolescent Health Immunizations (chief complaint) Encounter for immunization 7 [facility]. [address], [id number] [address] [place] [address], [address], [place]. tel: [phone] OFFICE/OUTPA TIENT VISIT, [facility], [address] [place], [address], [place] tel:[phone] [facility] Adolescent Health Follow Up (chief complaint) Vitamin D deficiency, unspecified Oct-2 7 Vishal Vitale. [address], [id number] [address] [place] [address], [address], [place]. tel: [phone] PREV VISIT, [facility], AGE 18-39 [facility], [address] [place] [address], [address], [place] tel:[phone] [facility] Adolescent Health Follow Up (chief complaint) Encntr for general adult medical exam w/o abnormal findingsBody mass index (BMI) 23.0-23.9, adultEncount er for exam of ears and hearing w/o abnormal findingsEnco unter for exam of eyes and vision w/o abnormal findingsMild depressionSc reening for depressionIn somnia, unspecified typeImmuniza tion dueVitamin D deficiency, unspecified Apr-0 7 Vishal Vitale. [address], [id number] [place], [address], [place]. tel: [phone] [facility], [address] [place], [address], [place] tel:[phone] [facility] Dental Encounter for dental exam and cleaning w/o abnormal findings 6 Devora Davis. [address], [id number] [address] [place] [address], [id number], [place]. tel:[phone] OFFICE/OUTPA TIENT VISIT, [facility], [address] [place], [address], [place] tel:[phone] [facility] Adolescent Health f/u (chief complaint) Immunization due 5 Vishal Vitale. [address], [id number] [address] [place] [address], [address], [place]. tel:[phone] OFFICE/OUTPA TIENT VISIT, [facility], [address], [place], [address], [place] tel:[phone] [facility] Adolescent Health Sick visit (chief complaint) Lower abdominal pain, unspecifiedI mmunization dueVitamin D deficiency, unspecified 5 Vishal Vitale. [address], [id number] [address] [place] [address], [address], [place]. tel:[phone] OFFICE/OUTPA TIENT VISIT, [facility], [address], [place], [address], [place] tel:[phone] [facility] Adolescent Health cramps (chief complaint)New patient (chief complaint) Dysmenorrhea Leg pain 5 Vishal Vitale. [address], [id number] [address] [place] [address], [address], [place]. tel:[phone] [facility], [address] [place], [address], [place] tel:[phone] [facility] Dental Dental examination 5 Devora Davis. [address], [id number] [place], [id number], [place]. tel:[phone] Referring Provider: Susan Lozoya, [address] [id number] [facility], [place], [address] . tel:[phone] [facility], [place], [address], [place] tel:[phone] [facility] Dental Dental examination 5 No Information [facility], [place], [address], [place] tel:[phone] [facility] Dental Dental examination 5 Devora Davis. [address], [id number] [address] [place] [address], [id number], [place]. tel:[phone] [facility], [address] [place] [address], [address], [place] tel:[phone] [facility] Dental Dental examination 5 Rodri Tan. [address], [id number] [address] [place] [address], [id number], [place]. tel:[phone] [facility], [address] [place] [address], [address], [place] tel:[phone] [facility] Dental Dental examination 4 Devora iKrk. [address], [id number] [address] [place] [address], [id number], [place]. tel:[phone] [facility], [address] [place] [address], [address], [place] tel:[phone] Historic Immunization Location No Information 1 No Information [facility], [address] [place] [address], [address], [place] tel:[phone] Conversion ROUTINE INFANT OR CHILD HEALTH CHECKHEADACH E, UNSPECIFIED 0 9 No Information PREV EST 12-17 [facility], [address] [place] [address], [address], [place] tel:[phone] [facility] Pediatrics No Information 9 No Information [facility], [address] [place] [address], [address], [place] tel:[phone] Conversion UNSPECIFIED VIRAL INFECTION 9 No Information EST General acute hospital, [address] [place], [address], tel:[phone] [facility] Pediatrics No Information 9 No Information [facility], [address] [place], [address], [place] tel:[phone] Conversion ACUTE GASTRITIS (WITHOUT HEMORRHAGE) 8 No Information EST General acute hospital, [address] [place], [address], [place] tel:[phone] [facility] Pediatrics No Information 8 No Information Family History Family Member Type Diagnosis Age At Onset Sister Problem (finding) migraine Father Problem (finding) hypertension Immunizations Vaccine Date Status Comments meningococcal B, OMV, 2 dose schedule administered Note: vis given ; So urce: New Immunization Record Flulaval or Fluarix 2016 administere d Note: vis given ; Source: New Immunization Record meningococcal B, OMV, 2 dose schedule administered Note: vis given ; So urce: New Immunization Record HPV (9-valent) administered Note: vis giv en ; Source: New Immunization Record Influenza, seasonal, injectable, preservative free, 3 yrs or older (36 mos+) administered Note: vis given ; Source: New Immunization Record HPV (9-valent) administered Note: vis giv en ; Source: New Immunization Record HPV administered Source: New Imm unization Record MCV4 (11-55 yrs) administered Source: New Immunization Record Hep A (adult) administered Source: New Im munization Record Influenza, injectable, split virus, preservative free, 3 years and older Afluria ???[id number] administered Source: New Immuniza tion Record HEP [...] Covered green party ID James zuleta(s) Vivek [id number] CHN Husky D [id number] CHN Husky D [id number] CHN Husky A [id number] CHN Husky A [id number] CHN Husky A [id number] Social History Type Description Quantity Date Captured [...] and counseling completed Referral Ordered: Referrals: Location: [facility] Optometry Appointment date/timeframe: 04/19/2018 ordered Patient Education [...] live with someone who has been in [place] [facility] [place], has lived in a penitentiary, injects IV drugs or has HIV? noHas [...] No dysuria. No vaginal D/C. Came from [facility] in 2004. No hospitalizations. No chronic meds. NKDA.Has graduated from [employer] (medical school on line). 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 Denies smoking and drug abuse. Sleeps 8 [...] hospitalizations. No chronic meds. NKDA.Has graduated from [employer] (medical school on line). 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 Denies smoking and drug abuse. Reports good mood, no SI.Sleeps 9 hours/night. Eats breakfast daily. f/u Here for F/U.Rep orts that abdominal pain and vomiting have resolved. Regular BMs. No dysuria. No vaginal D/C. Regular periods with dysmenorrhea SXs. LMP-04/29/15. No sex yet. Has started the vitamin D treatment.Came from [facility] in 2004. No hospitalizations. No chronic meds. NKDA.Attends [employer] ([employer]). 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 Denies smoking and drug abuse. Reports good mood, no SI.Sleeps 9 hours/night. Eats breakfast daily. Sick visit Occasional abdom inal pain and vomiting for 3 days. Last BM 3 days ago. Feels better today, last vomiting yesterday. No dysuria. No vaginal D/C. Regular periods with dysmenorrhea SXs. LMP-04/29/15. No sex yet. Has not taken the vitamin D treatment yet.Came from [facility] in 2004. No hospitalizations. No chronic meds. NKDA.Attends [employer] school on line). 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 Denies smoking and drug abuse. Reports good mood, no SI.Sleeps 9 hours/night. Eats breakfast daily. cramps New patient New patient. Cam e from [facility] in 2004. No hospitalizations. No chronic meds. NKDA.Attends 12th grade. Denies smoking and drug abuse. Regular periods with dysmenorrhea SXs. LMP-10/12/14. No sex yet. Reports good mood, no SI.Sleeps 9 hours/night. Eats breakfast daily.Occasional R leg pain, last episode 2 weeks ago Functional Status Date Functional Assessmen t No Information Instructions Date Instruction Additional Infor roly -referred to [facility] Optometry Relat ed to Myopia of both eyes -prescribed Naproxen 500mg twice per day to [...] Menstrual migraine without status migrainosus, not intractable -vaginitis panel col lected-prescribed Diflucan to be [...] appropriate diet discussed (15-21 years) - prescribed Naproxe n 500mg twice per day as needed, to be taken with meals- be sure to rest, get 8-9 hours of sleep- may consider decreasing screentime (phone, TV, computer) if aggravating- f/u if no headache relief with Naproxen during nexy menstrual period Related to Menstrual migraine without status migrainosus, not intractable - prescribed Naproze n 500mg twice daily as needed for menstrual cramps- may use heat for comfort- discussed option of OCP to control menstrual cramps, patient declines at this time- CBC ordered to see if bleeding is causing anemia Related to Dysmenorrhea, unspecified - HPV and Men B VIS given- [...]
== END 2024-07-16 15:52 | disposition home or self-care (01) ==
LOC: HO.US 15:51
PROVIDERS: PCP Internal Medicine; Visit Provider Advanced Practice Midwife
DX: N92.0 Excessive and frequent menstruation with regular cycle (principal)
CPT/HCPCS: 76830; 76856

== ENCOUNTER → 2024-07-16 15:54 | Outpatient (BNV) | payer OTHER, SELFPAY | PROVIDERS: PCP Internal Medicine; Visit Provider Nuclear Medicine | DX: N92.0 Excessive and frequent menstruation with regular cycle (principal) | CPT/HCPCS: 76830; 76856 ==

== ENCOUNTER 2024-08-01 08:58 | Outpatient (AMB) | payer OTHER, SELFPAY ==
--- NOTE | 2024-08-01 09:03 | A.OFFVIS_ITS ---
Intake Visit Reasons: US results Negative Restorer: Negative Restorer Present Allergies pineapple Allergy (Verified 08/01/24 09:04) Itching Is last menstrual period known: Yes Last menstrual period: 07/16/24 HPI Comments Details: Patient is here today for a pelvic ultrasound follow up. History of heavy menstrual bleeding. She was previously not taking her iron supplements. She is planning of has been trying over a year, insurance does not cover infertility benefits for her. Her partner a has a different insurance they have not research whether he has coverage. She has started to take her iron supplements since her last visit. She reports he is pretty stressed out and they are planning a vacation soon and may put things on hold. 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 Menorrhagia Migraine with aura Social History (Updated 07/11/24 @ 10:02 by Mariaelena Reyes Halie) Household Members: Family Alcohol intake: never Patient Tobacco Use Status: Never used Tobacco service: No Current occupational status: employed Female Reproductive History Menstrual Age of Menarche: 12 Date of last menstrual period: 07/16/24 Review of Systems Const All systems reviewed & are unremarkable except as noted in HPI and below Endo Reports no additional complaints Physical Exam Const General: cooperative, healthy appearing and no acute distress Psych Appearance: well kempt Attitude: cooperative Thought process: Normal thought process present Results Reviewed Results Reviewed: [address] [address] Ultrasound Report Signed Patient: LAURYN ATKINS MR#: [id number] : 1995 Acct:[id number] Age/Sex: 28 / F ADM Date: 07/16/24 Loc: HO.US Attending Dr: January Kent CNM Ordering Physician: January Kent CNM Date of Service: 07/16/24 Procedure(s): US pelvic and transvaginal Accession Number(s): [id number] cc: Vicki Evans MD; January Kent CNM~ CLINICAL HISTORY: N92.0 - Excessive and frequent menstruation with regular cycle US pelvis transabdominal and transvaginal Comparison: None Findings: Transabdominal scanning performed for overall anatomy. Transvaginal scanning performed for additional detail. Uterus is 9.4 cm length. Normal myometrium. Endometrium 6.0 mm thickness. Right ovary 2.4 x 1.2 x 1.7 cm. Left ovary 1.4 x 1.6 x 1.5 cm. Normal color Doppler of both ovaries. No free fluid. IMPRESSION: 1. Normal pelvic ultrasound This document has been electronically signed by: Gilberto Morgan MD on 07/18/2024 14:52:03 Dictated By: Gilberto Morgan MD Signed By: <Electronically signed by Gilberto Morgan MD in OV> 07/18/241452 DD/ 51 TD/TT: 07/18/241451 Director Of Compensation: Assessment & Plan Assessment & Plan (1) Menorrhagia: Code(s): N92.0 - Excessive and frequent menstruation with regular cycle Category: Medical Qualifiers: Menorrhagia type: with regular cycle Qualified Code(s): N92.0 - Excessive and frequent menstruation with regular cycle (2) Microcytic hypochromic anemia: Code(s): D50.9 - Iron deficiency anemia, unspecified Category: Medical Plan Discussed: Ultrasound findings are normal. Advised to call to have partner call insurance company to see if services are covered. Discuss treatment options for heavy menstrual periods she would prefer to defer for the time being. Advised to call if menses are increasing to be re-evaluated sooner than her annual in a year from now. Options for treatment of heavy menses. She reports a follow up in November for labs. The patient expressed understanding and agreement with the plan of care. All of her questions and concerns were addressed to the best of my ability. This note is constructed using voice recognition software. While every effort has been made to ensure accuracy, associate merchandise planner errors may have been included. Coding Level of Care Code Est Pt Level 3 (86492) Diagnoses Menorrhagia with regular cycle N92.0 Menorrhagia type: with regular cycle Microcytic hypochromic anemia D50.9
--- OUTSIDE RECORDS SUMMARY | 2024-08-01 10:12 | XMS_ITS | Clinical Summary ---
Author Organization [facility] Address [address] [place] [address] Care Team Providers Care Voice Network Administrator Name Role Phone Unavailable Primary Care Provider Unavailabl e Immunizations Name Administration Dates Next Due Covid-19 (Pfizer) Dilution Required 09/10/2020,0 08/13/2020 Social History Tobacco Use Types Packs/Day Years Used Date Smoking Tobacco: Never Assessed Sex and Gender Information Value Date Recorded Sex Assigned at Not on file Gender Identity Not on file Sexual Orientation Not on file Job Start Date Occupation Industry Not on file Not on file Not on file Plan of Treatment Health Maintenance Due Date Last Done Comments Hepatitis B Vaccines (1 of 3 - 3-dose series) 1995 Hepatitis C Screening 1995 Depression Screening 2007 Preventative Health Evaluation 11/05/2013 DTap / Tdap / Td (1 - Tdap) 11/05/2014 Cervical Cancer Screening (Pap Smear) 11/05/2016 COVID-19 Vaccine (2023-2 5 season) 2024 09/10/2020, 08/13/2020 Influenza Vaccine (#1) 2024 Pneumococcal Vaccine Aged Out No long er eligible based on patient's age to complete this topic RSV Ped < 20 months Aged Out No longe r eligible based on patient's age to complete this topic Jerad Knight Personal/Family Self 1995 ([place]) [address] [place] [id number]
== END 2024-08-01 10:33 | disposition home or self-care (01) ==
PROVIDERS: PCP Internal Medicine; Visit Provider Advanced Practice Midwife
DX: N92.0 Excessive and frequent menstruation with regular cycle (principal); D50.9 Iron deficiency anemia, unspecified
CPT/HCPCS: 99213

== ENCOUNTER → 2024-08-01 08:58 | Outpatient (BNVA) | payer OTHER, SELFPAY | PROVIDERS: PCP Internal Medicine; Visit Provider Advanced Practice Midwife | DX: N92.0 Excessive and frequent menstruation with regular cycle (principal); D50.9 Iron deficiency anemia, unspecified | CPT/HCPCS: 99212 ==

== ENCOUNTER 2025-05-08 09:23 | Outpatient (REF) | payer OTHER, SELFPAY ==
--- OUTSIDE RECORDS SUMMARY | 2025-05-08 10:24 | XMS_ITS | Clinical Summary ---
Author Organization [facility] Address [address] [place] [address] Care Team Providers Care Fish Net Maker Name Role Phone Unavailable Primary Care Provider [...] Cancer Screening (Pap Smear) 11/05/2016 COVID-19 Vaccine (2024-2 6 season) 2025 09/10/2020, 08/13/2020 Influenza Vaccine (#1) 2025 Pneumococcal Vaccine Aged Out No long er eligible based on patient's age to complete this topic RSV Ped < 20 months Aged Out No longe r eligible based on patient's age to complete this topic Jerad Knight Personal/Family Self 1995 ([place]) [address] [place] [id number]
[2025-05-08 10:33] LABS: MANUAL DIFF FLAG NO
[2025-05-08 10:53] LABS: Hematocrit 34.4 % (37.0-47.0); Hemoglobin 10.2 g/dl (12.0-16.0); Imm Gran Abs Auto 0.02 X10*3/uL (0.00-0.03); Imm Gran Pct Auto 0.3 % (0.0-0.4); Lymphocytes Absolute Auto 2.4 X10*3/uL (1.2-4.9); Mean Corpuscular HGB Conc 29.7 g/dl (31.0-35.0); Mean Corpuscular Hemoglobin 22.2 pg (27.0-33.0); Mean Corpuscular Volume 74.8 fL (80.0-98.0); NRBC Abs Auto 0.000 X10*3/uL (0.0-0.012); NRBC Pct Auto 0.0 /100WBC (0.0-0.2); Platelet Count 396 X10*3/uL (160-400); Red Blood Count 4.60 X10*6/uL (4.20-5.50); White Blood Count 5.8 X10*3/uL (4.8-10.8)
[2025-05-08 11:30] LABS: Ferritin 15 ng/mL (10-122)
== END 2025-05-08 09:24 | disposition home or self-care (01) ==
LOC: HO.10HDL 09:23
PROVIDERS: Visit Provider Internal Medicine
DX: Z00.00 Encounter for general adult medical examination without abnormal findings (principal); D50.8 Other iron deficiency anemias; G43.109 Migraine with aura, not intractable, without status migrainosus
CPT/HCPCS: 36415; 82728; 85025